=== PATIENT | male | born 1965 | race African-American/Black ===

== ENCOUNTER → 2020-01-20 13:59 | Outpatient (BNVA) | payer OTHER, SELFPAY | PROVIDERS: Visit Provider Nurse Practitioner Family | DX: Z01.818 Encounter for other preprocedural examination (principal) | CPT/HCPCS: 99212; Q3014 ==

== ENCOUNTER 2020-03-09 10:16 | Day surgery (SDC) | payer OTHER, SELFPAY ==
[2020-02-29 15:47] VITALS: BMI 27.1
--- NOTE | 2020-03-08 09:28 | P.CONAN_ITS ---
Documented by User: Gladys De Santiago 03/08/20 09:29 HPI - Anesthesia Eval Consult details Narrative: 54yo M for Colonoscopy [facility] Past Medical History Medical History Anxiety Diabetes mellitus Elevated cholesterol HTN (hypertension) Family History Family History Father No problems noted. Mother Diabetes Maternal Grandmother Cancer Social History Social History Household Members: Spouse Housing: House Alcohol intake: never Smoking Status: Former smoker Smoking Quit Date: 2005 Use of substances other than those prescribed or required for medical reasons: No Advance Directives: No Advance Directives Information Provided: No Advance Directives on File: No Meds Allergies Allergy/AdvReac Type Severity Reaction Status Date / Time No Known Allergies Allergy Verified 02/29/20 15:45 [No Known Allergies*] Home Medications Medication Instructions Recorded Confirmed Type metformin 500 mg tablet 1,000 mg PO BID tab 01/20/20 02/29/20 History dulaglutide [Trulicity] mg SUBCUT 02/29/20 History empagliflozin [Jardiance] 1 tab PO DAILY 02/29/20 02/29/20 History valsartan 1 tab PO DAILY 02/29/20 02/29/20 History Exam Exam Date and Time: March 08, 202028 Height,Weight and Vital Signs: Height 6 ft Weight 90.718 kg Assessment and Plan Assessment Anesthesia Assessment: Chart Reviewed Documented by User: Niki Newberry 03/09/20 10:33 [facility] Past Medical History Medical History Anxiety Diabetes mellitus Elevated cholesterol HTN (hypertension) Family History Family History Father No problems noted. Mother Diabetes Maternal Grandmother Cancer Social History Social History Household Members: Spouse Housing: House Alcohol intake: never Smoking Status: Former smoker Smoking Quit Date: 2005 Use of substances other than those prescribed or required for medical reasons: No Advance Directives: No Advance Directives Information Provided: No Advance Directives on File: No Meds Allergies Allergy/AdvReac Type Severity Reaction Status Date / Time No Known Allergies Allergy Verified 02/29/20 15:45 [No Known Allergies*] Home Medications Medication Instructions Recorded Confirmed Type metformin 500 mg tablet 1,000 mg PO BID tab 01/20/20 02/29/20 History dulaglutide [Trulicity] mg SUBCUT 02/29/20 History empagliflozin [Jardiance] 1 tab PO DAILY 02/29/20 02/29/20 History valsartan 1 tab PO DAILY 02/29/20 02/29/20 History Exam Airway Mallampati Class: II TM Dist: >3cm Neck ROM: Full Heart: RRR Lungs: CTA
[2020-03-09 10:26] LABS: Glucose, Whole Blood 121 mg/dL (60-115)
[2020-03-09 10:30] VITALS: BP 144/88; PULSE 76; RESP 18; TEMP 36.1; O2SAT 98
--- NOTE | 2020-03-09 10:32 | P.HPSUR_ITS ---
Pre-Procedural Eval Section B Chief Complaint: Screening Relevant Family History (Specify if Yes): No Relevant Social History: None Present Medications: see Short Stay Collaborative assessment Medical History: Significant History (Anxiety Diabetes mellitus Elevated cholesterol HTN (hypertension)) History of Previous Operations: No relevant previous surgery Allergies: Allergies Allergy/AdvReac Type Severity Reaction Status Date / Time No Known Allergies Allergy Verified 02/29/20 15:45 [No Known Allergies*] Review of Systems Sugical H&P ROS: Negative: Constitution, Cardiovascular, Respiratory, Neurological, Psychiatric, Hem-Onc, Allergic/Immunologic, Gastrointestinal, Patricia tourinary, Musculoskeletal, Integumentary, Endocrine and Eyes/Ears/Nose/Throat Exam Surgical H&P Exam: Normal: HEENT, Normal: Heart, Normal: Lungs, Normal: Extremities, Normal: Abdomen, Normal: Skin and Normal: Neurological Plan Diagnosis/Plan: Unchanged I have reviewed the history and physical and performed a pertinent physical examination on my patient. No changes have occurred unless specified.
--- NOTE | 2020-03-09 10:33 | P.CONAN_ITS ---
[facility] Past Medical History Medical History Anxiety Diabetes mellitus Elevated cholesterol HTN (hypertension) Family History Family History Father No problems noted. Mother Diabetes Maternal Grandmother Cancer Social History Social History Household Members: Spouse Housing: House Alcohol intake: never Smoking Status: Former smoker Smoking Quit Date: 2005 Use of substances other than those prescribed or required for medical reasons: No Advance Directives: No Advance Directives Information Provided: No Advance Directives on File: No Meds Allergies Allergy/AdvReac Type Severity Reaction Status Date / Time No Known Allergies Allergy Verified 02/29/20 15:45 [No Known Allergies*] Home Medications Medication Instructions Recorded Confirmed Type metformin 500 mg tablet 1,000 mg PO BID tab 01/20/20 02/29/20 History dulaglutide [Trulicity] mg SUBCUT 02/29/20 History empagliflozin [Jardiance] 1 tab PO DAILY 02/29/20 02/29/20 History valsartan 1 tab PO DAILY 02/29/20 02/29/20 History Exam Exam Date and Time: March 09, 2020 1033 Height,Weight and Vital Signs: Height 6 ft Weight 90.718 kg Last Vital Signs Temp 97.0 F 03/09/20 10:30 Pulse 76 03/09/20 10:30 Resp 18 03/09/20 10:30 BP 144/88 H 03/09/20 10:30 Pulse Ox 98 03/09/20 10:30 Pertinent Lab Results Pertinent Lab Results: Laboratory Tests 03/09/20 10:22 POC Glucose 121 H Assessment and Plan Assessment Anesthesia Assessment: Anesthesia Plan Discussed Final Anesthetic Review NPO: Yes ASA Class: II Final Preanesthetic Review: No Changes in Pt Med Stat, Meds/Allgs Chart Reviewed, Consent Obtained/Reviewed and Anes Risks/Benef Reviewed Patient Risk: Low Procedure Risk: Low Assessment/Block/Sedation in SS: Assess/Block/Sedation-SS Anesthetic Plan Anesthetic Plan: MAC: Disposition: Standard PACU
[2020-03-09] MEDS: Lactated Ringers 1,000 ML 100 ML IVCONT (10:41)
--- NOTE | 2020-03-09 10:52 | P.BOP_ITS ---
Brief Operative Note Date of Service: 03/09/20 Pre-op diagnosis: colon screen Post-op diagnosis: same Procedure: Operative Information Procedure Description: Colonoscopy COLONOSCOPY Instrument: Olympus variable stiffness pediatric scope 190L Colonoscopy Monitoring: Vital signs and clinical assessment, continuous EKG monitoring, Pulse oximetry, Carbon Dioxide monitoring and blood pressure monitoring were done throughout the procedure. Colon withdrawal time was 25 minutes. Procedure: The patient was placed in the left lateral decubitis position and pre-procedure medications were administered. After a digital rectal examination of the ano-rectum, the video colonoscope was inserted into the rectum and advanced through the colon to the cecum/TI. The colonoscope was slowly withdrawn in a retrograde panoramic fashion and the colon mucosa was carefully examined including a retroflexed view of the rectum. Findings and interventions are described below. Procedure Difficulty:difficult due to looping, pediatric scope and suboptimal prep, pressure applied to lower abdomen Findings: Terminal Ileum-normal Cecum:normal Ascending Colon: normal Transverse Colon -12 mm linear sessile polyp injected few cc of ORISE then removed with cold snare Descending Colon: 8-9 mm sessile polyp removed with cold snare Sigmoid Colon: normal Rectum: Retroflexion with small internal hemorrhoids, grade II Anorectum - normal, internal hemorrhoids seen at anal verge Colon preparation: [place] Bowel Preparation Scale Right colon; 2 Transverse colon: 1 Left colon; 1 (0 = Unprepared colon segment with mucosa not seen due to solid stool that cannot be cleared. 1 = Portion of mucosa of the colon segment seen, but other areas of the colon segment not well seen due to staining, residual stool and/or opaque liquid. 2 = Minor amount of residual staining, small fragments of stool and/or opaque liquid, but mucosa of colon segment seen well. 3 = Entire mucosa of colon segment seen well with no residual staining, small fragments of stool or opaque liquid) Impression and Post Procedure Diagnosis: polyps internal hemorrhoids Plan: High fiber diet leaflet Avoid straining at stool, epsom salts and sitz bath, anusol supps or cream Repeat Colonoscopy in 1 year or earlier if clinically indicated, review prep with patient again Above findings were reviewed with the patient and relevant handouts were provided if indicated. Surgeon: Zev Cantrell MD Anesthesia: MAC Estimated blood loss (mL): 0 Condition: stable Disposition: PACU
[2020-03-09 11:39] VITALS: BP 115/74; PULSE 73; RESP 16; TEMP 36.3; O2SAT 98
[2020-03-09 11:54] VITALS: BP 118/75; PULSE 62; RESP 16; O2SAT 100
[2020-03-09 12:08] VITALS: BP 122/77; PULSE 62; RESP 16; TEMP 36.8; O2SAT 99
--- NOTE | 2020-03-09 12:35 | HO.POSTANES ---
Post Anesthesia Evaluation Post Anesthesia Evaluation Vital Signs: Vital Signs Temp Pulse Resp BP Pulse Ox 03/09/20 12:08 98.2 F 62 16 122/77 99 03/09/20 11:54 62 16 118/75 100 03/09/20 11:39 97.4 F 73 16 115/74 98 03/09/20 10:30 97.0 F 76 18 144/88 H 98 Anesthesia: General (tiva) Mental Status: Awake Pain Control: Satisfactory Nausea/Vomiting: None Hydration: Adequate Anesthesia-Related Issues: No Anes. Related Issues
== END 2020-03-09 12:25 | disposition home or self-care (01) ==
PROVIDERS: PCP Nurse Practitioner Family; Visit Provider Internal Medicine Gastroenterology
PROC: 0DJD8ZZ Inspection of Lower Intestinal Tract, Via Natural or Artificial Opening Endoscopic (ICD-10-PCS; CPT 45378; principal; 2020-03-09 11:20)
DX: Z12.11 Encounter for screening for malignant neoplasm of colon (principal); D12.3 Benign neoplasm of transverse colon; K63.5 Polyp of colon; K64.1 Second degree hemorrhoids; I10 Essential (primary) hypertension; E11.9 Type 2 diabetes mellitus without complications; Z79.84 Long term (current) use of oral hypoglycemic drugs; Z79.899 Other long term (current) drug therapy; Z87.891 Personal history of nicotine dependence
CPT/HCPCS: 45385; 45381; 82947; 88305

== ENCOUNTER → 2020-03-17 14:00 | Outpatient (BNVA) | payer OTHER, SELFPAY | PROVIDERS: Visit Provider Nurse Practitioner Family | DX: D36.9 Benign neoplasm, unspecified site (principal); Z98.890 Other specified postprocedural states | CPT/HCPCS: Q3014 ==

== ENCOUNTER → 2020-06-01 15:50 | Outpatient (BNVA) | payer OTHER, SELFPAY | PROVIDERS: Visit Provider Urology | DX: Z13.89 Encounter for screening for other disorder (principal) | CPT/HCPCS: 99202 ==

== ENCOUNTER → 2020-06-15 11:18 | Outpatient (BNVA) | payer OTHER, SELFPAY | PROVIDERS: Visit Provider Urology | DX: Z30.09 Encounter for other general counseling and advice on contraception (principal); F41.8 Other specified anxiety disorders | CPT/HCPCS: 55250 ==

== ENCOUNTER → 2020-07-26 10:19 | Outpatient (BNVA) | payer OTHER, SELFPAY | PROVIDERS: Visit Provider Urology | DX: N39.0 Urinary tract infection, site not specified (principal); A49.9 Bacterial infection, unspecified | CPT/HCPCS: 99212 ==

== ENCOUNTER → 2020-10-07 15:27 | Outpatient (BNVA) | payer OTHER, SELFPAY | PROVIDERS: Visit Provider Urology | DX: Z98.52 Vasectomy status (principal); F41.8 Other specified anxiety disorders | CPT/HCPCS: 99212 ==

== ENCOUNTER → 2021-02-17 14:17 | Outpatient (BNVA) | payer OTHER, SELFPAY | PROVIDERS: Visit Provider Nurse Practitioner Family | DX: Z12.11 Encounter for screening for malignant neoplasm of colon (principal); D36.9 Benign neoplasm, unspecified site | CPT/HCPCS: 99212 ==